=== PATIENT | male | born 1935 | race Caucasian/White ===

== ENCOUNTER 2020-04-08 21:57 | Inpatient (IN) | payer MEDICARE ==
[~2020-04-08] VITALS: Ht 175.3 cm; Wt 64.4 kg
[~2020-04-08 21:57] MED LIST: ALBUTEROL0.83 MG/ML IH; ASPIR-LOW81 MG PO; BENAZEPRIL PO; HCTZ 25MG25 MG PO; NIFEDIPINE ER90 MG PO; PRAVACHOL 40MG40 MG PO; PULMOZYME IH; SINGULAIR10 MG PO; SPIRIVA INH IH; SYMBICORT1 AE1; SYMBICORT1 AE1 IH; ZETIA10 MG PO
[2020-04-09] VITALS (619 sets, daily range): BP systolic 53–178; BP diastolic 25–107; PULSE 80–87; TEMP 97.7–99.4; O2SAT 82–100
--- NOTE | 2020-04-09 00:36 | NUR ---
PT arrived by EMS from [facility]. PT intubated at this time and transferred to unit bed with the help of staff and EMS. PT changed over to hospital ventilator with no difficulties by RT. Dr. Elizabeth notified that patient arrived on the unit and provider stated he would be by shortly to assess and place orders. PT attached to CRM monitor and vitals obtained. Will continue to monitor.
[2020-04-09 02:54] LABS: ARTERIAL BLD GAS O2 SATURATION 96.5 % (92-100); ARTERIAL BLD GAS TCO2 CT 26.4; ARTERIAL BLOOD GAS BASE EXCESS -3.2 (-2-2); ARTERIAL BLOOD GAS HCO3 24.7 meq/L (22-26); ARTERIAL BLOOD GAS PCO2 56.1 mmHg (35-45); ARTERIAL BLOOD GAS pH 7.26 (7.35-7.45)
[2020-04-09 05:05] LABS: BASO % 0.1 % (0.0-2.0); GRAN # 16.4 (1.4-6.5); GRAN % 86.6 % (42.2-75.2); HEMATOCRIT 37.9 % (42.0-52.0); HEMOGLOBIN 12.3 g/dl (13.5-18.0); LYMPH # 0.7 (1.2-3.4); LYMPH % 3.8 % (20.0-51.0); MEAN CELL VOLUME 96 fl (80.0-100.0); MEAN CORPUSCULAR HEMOGLOBIN 31 pg (27.0-31.0); MEAN CORPUSCULAR HGB CONC 33 g/dl (33.0-37.0); MEAN PLATELET VOLUME 10.3 fl (7.4-10.4); MONO # 1.7 (0.1-0.6); MONO % 9.1 % (1.7-9.3); PLATELET COUNT 210 K/mm3 (130-400); RED BLOOD COUNT 3.95 M/mm3 (4.20-5.60); REDCELL DISTRIBUTION WIDTH-CV 13.2 % (11.5-14.5)
[2020-04-09 05:33] LABS: CREATININE, serum 1.41 (0.66-1.25); POTASSIUM 4.4 mmol/L (3.4-5.0)
[2020-04-09 06:11] LABS: ARTERIAL BLD GAS O2 SATURATION 96.7 % (92-100); ARTERIAL BLD GAS TCO2 CT 24.1; ARTERIAL BLOOD GAS BASE EXCESS -0.4 (-2-2); ARTERIAL BLOOD GAS HCO3 23.1 meq/L (22-26); ARTERIAL BLOOD GAS PCO2 34.3 mmHg (35-45); ARTERIAL BLOOD GAS PO2 84.2 mmHg (80-100); ARTERIAL BLOOD GAS pH 7.45 (7.35-7.45)
[2020-04-09] MEDS ORDERED: ADALAT CC90 MG PO (06:30)
--- NOTE | 2020-04-09 08:45 | NUR ---
Notified endo and anesthesia of EGD plan at 1230 with .
--- NOTE | 2020-04-09 09:33 | NUR ---
CLARIFIED OG TUBE INSERTION WITH AND HE STATES TO HOLD OFF TILL POST PROCEDURE. ALSO, ASKED THIS RN TO PLACE PRE-EGD ORDERS.
--- NOTE | 2020-04-09 10:26 | NUR ---
Optimization Specialist attended clinical rounds with the team. The patient is currently intubated.
--- NOTE | 2020-04-09 13:24 | NUR ---
Deposition Operator attempted to contact the patient's to complete intake, left message.
--- NOTE | 2020-04-09 13:28 | NUR ---
PROPOFOL RATE POST EGD WAS AT 75MCG/KG/MIN. RATE DECREASED WHEN PROCEDURE OVER.
--- NOTE | 2020-04-09 14:32 | NUR ---
YESI DIAMOND BEDSIDE EVAL FOR EGD. PROPOFOL RATE ORDERED AT THIS TIME.
--- NOTE | 2020-04-09 15:34 | NUR ---
UPDATED ON EGD COMPLETION.
--- NOTE | 2020-04-09 16:20 | NUR ---
OG TUBE INSERTED DURING EGD. OG TO LIS. OG IS 57 AT THE LIP.
--- NOTE | 2020-04-09 17:57 | NUR ---
PT OPENS EYES TO VOICE. PT ABLE TO FOLLOW COMMANDS. PT MOVES ALL EXTREMETIES. WILL CONTINUE TO MONITOR.
--- NOTE | 2020-04-09 18:23 | NUR ---
RITA METZGER NOTIFIED OF PTS OUTPUT ONLY 150 FOR THE DAY. ORDER FOR LR BOLUS AND INCREASE FLUIDS.
[2020-04-09 20:21] LABS: ARTERIAL BLD GAS TCO2 CT 25.1; ARTERIAL BLOOD GAS BASE EXCESS -0.3 (-2-2); ARTERIAL BLOOD GAS HCO3 23.9 meq/L (22-26); ARTERIAL BLOOD GAS PCO2 37.7 mmHg (35-45); ARTERIAL BLOOD GAS PO2 65.8 mmHg (80-100); ARTERIAL BLOOD GAS pH 7.42 (7.35-7.45)
--- NOTE | 2020-04-09 21:26 | NUR ---
PT RESTING IN BE VERY ANXIOU ATTEMPTINNG TO GET OUT OF BED, ABLE TO FOLLOW COMMANDS AND ANSWER YEAS AND NO APPROPRIATLY. SEDATION INCREASED FOR PT COMFORT AND RELAXATION WHILE ON VENT. WILL TURN OFF ALL SEDATION FOR 629 SEDATION VACATION AND PLANS TO EXTUBATE. PT DENIES PAIN AT THIS TIME. WILL CONTINUE TO MONITOR VSS AND TEMP. AND INITIAT ORDERS NEEDED. WILL UPDATE PROVIDERS NEEDED.
[2020-04-10] VITALS (797 sets, daily range): BP systolic 103–150; BP diastolic 51–77; PULSE 67–107; TEMP 98–99.8; O2SAT 76–100
[2020-04-10 04:57] LABS: MAGNESIUM 2.4 mg/dL (1.6-2.3); PHOSPHOROUS 3.6 mg/dL (2.5-4.5)
--- NOTE | 2020-04-10 05:31 | NUR ---
PROPOFOL AND FENT ON STBY
--- NOTE | 2020-04-10 06:39 | NUR ---
SEDATION TURNED BACK ON BUT BY HALF, SBT ATTEMPTED BUT PT HR-120'S-130'S, RR-30'S, BP 160/81. PT TOLERATED SBT POORLY.
--- NOTE | 2020-04-10 09:57 | NUR ---
PT EXTUBATED TO 3 LPM NC W/O INCIDENT. PT RESTING COMFORTABLY IN BED.
--- NOTE | 2020-04-10 10:30 | NUR ---
Patient extubated at 0957 with BUFFING TURNER AND COUNTER per Dr. Stringer 2SW restraints removed at 1000 Patient able to talk, denies pain or discomfort. Oriented to person but intermittent confusion about place and time. Patient able to use the call light appropriately and move self in bed. Carter still draining to gravity, IV infusing well.
[2020-04-10 11:21] LABS: ARTERIAL BLD GAS O2 SATURATION 94.8 % (92-100); ARTERIAL BLD GAS TCO2 CT 27.2; ARTERIAL BLOOD GAS BASE EXCESS -0.3 (-2-2); ARTERIAL BLOOD GAS HCO3 25.7 meq/L (22-26); ARTERIAL BLOOD GAS PCO2 48.3 mmHg (35-45); ARTERIAL BLOOD GAS PO2 85.7 mmHg (80-100); ARTERIAL BLOOD GAS pH 7.34 (7.35-7.45)
[2020-04-10 20:33] LABS: ARTERIAL BLD GAS O2 SATURATION 93.2 % (92-100); ARTERIAL BLD GAS TCO2 CT 32.7; ARTERIAL BLOOD GAS BASE EXCESS 4.6 (-2-2); ARTERIAL BLOOD GAS PCO2 55.4 mmHg (35-45); ARTERIAL BLOOD GAS PO2 72.5 mmHg (80-100); ARTERIAL BLOOD GAS pH 7.37 (7.35-7.45)
[2020-04-11] VITALS (354 sets, daily range): BP systolic 89–147; BP diastolic 50–67; PULSE 67–85; TEMP 97.8–98.4; O2SAT 86–100
[2020-04-11 05:05] LABS: BASO % 0.2 % (0.0-2.0); EOS % 0.4 % (0-4.0); GRAN # 8.2 (1.4-6.5); GRAN % 79.7 % (42.2-75.2); LYMPH # 0.9 (1.2-3.4); LYMPH % 8.6 % (20.0-51.0); MEAN CELL VOLUME 96 fl (80.0-100.0); MEAN CORPUSCULAR HGB CONC 32 g/dl (33.0-37.0); MEAN PLATELET VOLUME 10.6 fl (7.4-10.4); MONO # 1.1 (0.1-0.6); MONO % 10.6 % (1.7-9.3); PLATELET COUNT 158 K/mm3 (130-400); RED BLOOD COUNT 3.29 M/mm3 (4.20-5.60); REDCELL DISTRIBUTION WIDTH-CV 13.7 % (11.5-14.5)
[2020-04-11 05:14] LABS: CALCIUM 8.1 mg/dL (8.4-10.2); CREATININE, serum 0.96 (0.66-1.25); MAGNESIUM 2.1 mg/dL (1.6-2.3); PHOSPHOROUS 2.7 mg/dL (2.5-4.5); POTASSIUM 3.4 mmol/L (3.4-5.0)
[2020-04-11 05:24] LABS: HEMATOCRIT 31.7 % (42.0-52.0); HEMOGLOBIN 10.2 g/dl (13.5-18.0); MEAN CORPUSCULAR HEMOGLOBIN 31 pg (27.0-31.0)
--- NOTE | 2020-04-11 08:09 | NUR ---
Cathy from dietary notified of patient's need for nutritional supplement per Dr. Kaiser
--- NOTE | 2020-04-11 08:10 | NUR ---
GI contacted regarding PTs conitnued complaints of not being able to eat
--- NOTE | 2020-04-11 13:01 | NUR ---
The patient is now extubated. Wood Casket Assembler met with the patient to complete intake. The patient lives in [place] with his , Sonia #[phone]. The patient uses 2.5L of oxygen at home. The patient denies use of ambulatory devices and states he still drives. The patient's PCP is Vangie Swan APRN at [facility]. The patient receives medications from [facility] pharmacy. He picks up his own medications. The patient does not have advanced directives in the EMR. The patient plans to return home at discharge. SW discussed the benefits of home health services and having these services after discharge. The patient declined. He states he is fine and that he should have not been eating that hamburger that caused his hospitalization. Dietitian consulted. The patient is currently on a pureed diet at this time. 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 She left a message for this SW and the best time to contact her is at 11:00 am or after 5:00 pm. Will attempt to contact her at a later time. The patient's only payor is Medicare. GEOFF consulted Sonia Brantley with finance regarding a Medicaid application for the patient. The patient has orders to transfer to the medical floor this day.
--- NOTE | 2020-04-11 14:50 | NUR ---
Report called to IRISH Mcarthur on medical floor.
--- NOTE | 2020-04-11 15:55 | NUR ---
Patient transported to medical floor room 307 via wheelchair without incident. PT moved to bed with SBA and care was assumed by IRISH Mcarthur.
--- NOTE | 2020-04-11 17:59 | NUR ---
Patient to floor at 1600 transported by Rufina COBURN from ICU. Pt transferred from wheelchair to bed with standby assist. Oxygen is being adminsitered via NC at 4 LPM. He is alert and oriented. Has been oriented to room and call light system. Was provided with extra pillow per his request. Lungs are diminished throughout. There is noted tracheal wheezing, does sounds wet when he clears his throat. Currently denies pain. Heart is regular, telemetry is in place. Abdomen is flat and nontender, bowel sounds are active in all quadrants. There is no edema noted to BLEs. Pt does state that he does feel slightly weak. Has been assisted to the restroom where he was able to void without difficulty. has called and given an update and assisted patient so he could speak with her. She is wishing that patient could be discharged on Thursday so she could make arrangements and prepare for him to return home. I did tell the spouse that this could be passed on to the provider and psychiatric social worker supervisor who would be making rounds tomorrow.
--- NOTE | 2020-04-11 20:19 | NUR ---
Pt resting in bed, assessment completed. pt denies pain, shortness of breath or cough. gave meds documented in SEP. no other needs at this time, will continue to montior.
[2020-04-12 03:22] VITALS: BP 135/56; PULSE 73; TEMP 98.8
--- NOTE | 2020-04-12 05:55 | NUR ---
pt sleeping in bed most of the night, got up a few times. does not call for standby assistance, bed alarm is on. pt refused bipap, oxygen via nasal cannula and sats were in mid 90s. no other needs at this time.
--- NOTE | 2020-04-12 06:48 | NUR ---
PATIENT DID NOT WEAR BIPAP LAST NIGHT BY HIS WORDS.
[2020-04-12 08:25] VITALS: BP 162/76; PULSE 67; TEMP 98.1
[2020-04-12] MEDS ORDERED: PEPCID 20MG TAB20 MG PO (09:20)
[2020-04-12] MEDS ORDERED: PULMICORT90 MCG/Act IH (09:20)
[2020-04-12] MEDS ORDERED: VENTOLIN0.09 MG IH (09:20)
--- NOTE | 2020-04-12 12:42 | NUR ---
Pt discharged to home, discussed discharge packet with Pt, escorted Ot to entrance, Pt left with family via private transportation.
--- NOTE | 2020-04-12 13:05 | NUR ---
The patient is ready to d/c today. GEOFF met with the patient to follow up and review d/c plan. GEOFF discussed home health services. The patient states that he plans on returning home with his and is not interested in any home health at this time. GEOFF presented and read the IM form outloud to the patient. The patient verbalized understanding and gave GEOFF approval to sign the form on his behalf. GEOFF provided him with a copy. GEOFF then contacted the patient's , Sonia, to review plan. Sonia confirms that they do not want any home health at this time. GEOFF notified the patient's PA, Lesa. The hospitalist is recommending that the patient continue ST upon discharge. GEOFF followed up with the patient and Sonia about this. Sonia reports that they would prefer and be agreeable to outpatient ST at [facility]. GEOFF contacted [facility] and secured the patient and outpatient ST appointment on 04/19 at 1015. GEOFF notified the refinery operator helper cracking unit and the patient's RN about appointment. The patient is to discharge back home with his family today, 04/12, with outpatient ST. GEOFF faxed the patient's records and d/c orders to [facility]. No additional needs at this time.
--- NOTE | 2020-04-16 12:01 | NUR ---
GEOFF received a call from Tangela at [facility] . Tangela reports that their ST would like to do a Modified Barium Swallow for the patient and that she would need an order for this. GEOFF notified DOMENICA Mcfadden. Lesa wrote and order for the Modified Barium Swallow. GEOFF notified and faxed the order to Tangela.
== END 2020-04-12 12:30 | disposition home or self-care (01) | DRG 393 ==
LOC: MEDICAL 21:57 → ICU 04-09 00:46 → MEDICAL 04-11 16:02
PROVIDERS: Internal Medicine; Internal Medicine Gastroenterology; Internal Medicine Pulmonary Disease
PROC: 0DC38ZZ Extirpation of Matter from Lower Esophagus, Via Natural or Artificial Opening Endoscopic (ICD-10-PCS; 2020-04-09)
PROC: 0D738ZZ Dilation of Lower Esophagus, Via Natural or Artificial Opening Endoscopic (ICD-10-PCS; 2020-04-09)
PROC: 5A1935Z Respiratory Ventilation, Less than 24 Consecutive Hours (ICD-10-PCS; principal; 2020-04-09 12:30)
DX: T18.128A Food in esophagus causing other injury, initial encounter (principal); I21.9 Acute myocardial infarction, unspecified; J96.11 Chronic respiratory failure with hypoxia; N17.9 Acute kidney failure, unspecified; K22.2 Esophageal obstruction; J44.9 Chronic obstructive pulmonary disease, unspecified; I10 Essential (primary) hypertension; I95.9 Hypotension, unspecified; E78.5 Hyperlipidemia, unspecified; K21.00 Gastro-esophageal reflux disease with esophagitis, without bleeding; Z87.891 Personal history of nicotine dependence; Z88.0 Allergy status to penicillin
CPT/HCPCS: 99222-AI; 99232-AI; 99233-AI; 99239; C1726; J1650; J2543; J2704; J3010; J7040; J7120

== ENCOUNTER 2020-12-03 17:09 | Emergency (ER) | payer MEDICARE ==
[2005-07-18 13:36] VITALS: BP 138/49
[~2020-12-03] VITALS: Ht 172.7 cm; Wt 55.9 kg
[~2020-12-03 17:09] MED LIST changes: +ADALAT CC60 MG PO; +ADALAT CC90 MG PO; +ASPIRIN E.C. 8181 MG PO; +FLOVENT 220MCG7.9 GM IH; +PEPCID 20MG TAB20 MG PO; +PERFOROMIS20 MCG/2 M IH; +PREDNISONE10 MG PO; +PROAIR HFA0.09 MG/AC IH; +PROVENTIL0.09 MG/A1 IH; +PULMICORT0.5 MG/2 M IH; +PULMICORT90 MCG/Act IH; +VENTOLIN0.09 MG IH
[2020-12-03 17:23] VITALS: TEMP 97.8
[2020-12-03 17:54] LABS: BASO # 0.1 (0.0-0.2); BASO % 0.5 % (0.0-2.0); EOS # 0.2 (0.0-0.7); EOS % 1.7 % (0-4.0); GRAN # 8.9 (1.4-6.5); HEMOGLOBIN 12.5 g/dl (13.5-18.0); LYMPH # 0.7 (1.2-3.4); LYMPH % 6.5 % (20.0-51.0); MEAN CELL VOLUME 96 fl (80.0-100.0); MEAN CORPUSCULAR HEMOGLOBIN 30 pg (27.0-31.0); MEAN CORPUSCULAR HGB CONC 31 g/dl (33.0-37.0); MEAN PLATELET VOLUME 11.1 fl (7.4-10.4); MONO # 1.2 (0.1-0.6); PLATELET COUNT 240 K/mm3 (130-400); RED BLOOD COUNT 4.17 M/mm3 (4.20-5.60); REDCELL DISTRIBUTION WIDTH-CV 13.8 % (11.5-14.5)
[2020-12-03 18:16] LABS: ARTERIAL BLD GAS O2 SATURATION 93.6 % (92-100); ARTERIAL BLD GAS TCO2 CT 37.7; ARTERIAL BLOOD GAS BASE EXCESS 9.4 (-2-2); ARTERIAL BLOOD GAS HCO3 35.9 meq/L (22-26); ARTERIAL BLOOD GAS PCO2 58.2 mmHg (35-45); ARTERIAL BLOOD GAS PO2 64.8 mmHg (80-100); ARTERIAL BLOOD GAS pH 7.41 (7.35-7.45)
[2020-12-03 18:36] LABS: ALANINE AMINOTRANSFERASE 6 U/L (4-49); ALBUMIN 3.8 gm/dL (3.5-5.0); ALKALINE PHOSPHATASE 98 U/L (50-136); AST,SGOT 19 U/L (15-37); BILIRUBIN,TOTAL 0.4 mg/dL (0.0-1.0); BLOOD UREA NITROGEN 21 mg/dL (9-20); CALCIUM 9.2 mg/dL (8.4-10.2); CHLORIDE 93 mmol/L (98-107); CREATININE, serum 0.81 (0.66-1.25); GLUCOSE 90 mg/dL (74-106); POTASSIUM 4.3 mmol/L (3.4-5.0); SODIUM 136 mmol/L (137-145); TOTAL PROTEIN 7.1 gm/dL (6.4-8.2)
[2020-12-03 18:42] LABS: CARBON DIOXIDE 37 mmol/L (22-30)
[2020-12-03 18:48] LABS: ANION GAP 6 mmol/L (7-16); TROPONIN-I < 0.012 ng/mL (0.000-0.035)
[2020-12-03] MEDS ORDERED: PREDNISONE20 MG PO (20:10)
[2020-12-03 21:00] VITALS: BP 154/69; PULSE 82
== END 2020-12-03 21:05 | disposition home or self-care (01) ==
LOC: COL.ER 17:09
PROVIDERS: Family Medicine; Physician Assistant
DX: J44.1 Chronic obstructive pulmonary disease with (acute) exacerbation (principal); C34.90 Malignant neoplasm of unspecified part of unspecified bronchus or lung; Z87.891 Personal history of nicotine dependence; Z79.51 Long term (current) use of inhaled steroids
CPT/HCPCS: J2930